=== PATIENT | male | born 1965 | race Caucasian/White ===

== ENCOUNTER → 2018-02-18 09:08 | Outpatient (CLI) | payer OTHER, SELFPAY ==
--- NOTE | 2018-02-18 09:17 | ECHOD_ITS ---
Reason For Study: CAD/ASHD Procedure This was a 2D Doppler, Color Flow transthoracic echocardiogram. Exam performed in department. Left Ventricle Normal size and thickness. The estimated ejection fraction is 65 %. No evidence for diastolic dysfunction. No regional wall motion abnormalities noted. Right Ventricle Normal size and thickness. Normal systolic function. Atria Normal left atrium. Normal right atrium. Normal atrial septum. Mitral Valve The mitral valve is structurally normal. No prolapse or stenosis seen. Trivial mitral valve insufficiency. Tricuspid Valve Normal tricuspid valve. Mild (1+) tricuspid valve insufficiency. Right ventricular systolic pressure estimated to be 31 mmHg. Aortic Valve Normal aortic valve. Trisinus/trileaflet aortic valve. Pulmonic Valve Normal pulmonic valve. Great Vessels Normal aortic root. Normal arch. Normal inferior vena cava. Inferior vena cava collapse with sniff. Pericardium/Pleural No pericardial effusion. MMode/2D Measurements & Calculations LVIDd: 5.2 cm IVSd: 1.1 cm Ao root diam: 3.2 cm LVIDs: 3.8 cm LVPWd: 1.0 cm LA dimension: 4.2 cm RVDd: 3.5 cm FS: 25.6 % LAV(MOD-bp): 70.2 ml LA A4 area: 18.4 cm2 RA A4 area: 18.0 cm2 LAV(MOD-bp) Indexed: 27.9 ml/m2 LAV(MOD-sp2): 83.9 ml LAV(MOD-sp4): 51.7 ml Doppler Measurements & Calculations MV E max saturnino: 83.5 cm/sec Lat Peak E' Saturnino: 11.5 cm/sec Med Peak E' Saturnino: 9.7 cm/sec MV A max saturnino: 53.8 cm/sec E/E' lat: 7.3 E/E' med: 8.6 MV E/A: 1.6 Ao V2 max: 119.3 cm/sec LV V1 max: 116.3 cm/sec PA V2 max: 99.4 cm/sec Ao max P.7 mmHg LV V1 max P.4 mmHg TR max saturnino: 244.1 cm/sec TR max P.9 mmHg Interpretation Summary The estimated ejection fraction is 65 %. No evidence for diastolic dysfunction. Trivial mitral valve insufficiency. Mild (1+) tricuspid valve insufficiency. Right ventricular systolic pressure estimated to be 31 mmHg. There is no comparison study available. Ordering Physician: Nelson Gutierrez Referring Physician: OTD Performed By: Trice Balderas RDCS, RVT
== END ==
PROVIDERS: Visit Provider Internal Medicine Cardiovascular Disease
DX: I25.10 Atherosclerotic heart disease of native coronary artery without angina pectoris (principal); I25.2 Old myocardial infarction; I10 Essential (primary) hypertension; E78.5 Hyperlipidemia, unspecified; Z95.5 Presence of coronary angioplasty implant and graft
CPT/HCPCS: 93306

== ENCOUNTER → 2019-07-21 09:59 | Outpatient (CLI) | payer OTHER, SELFPAY ==
[2019-06-29 13:07] VITALS: BMI 35.1
--- NOTE | 2019-07-21 10:01 | ECHOD_ITS ---
Reason For Study: PHTN Procedure This was a 2D Doppler, Color Flow transthoracic echocardiogram. Exam performed in department. Left Ventricle Normal size and thickness. The estimated ejection fraction is 65 %. Normal diastology for age. No regional wall motion abnormalities noted. Right Ventricle Normal size and thickness. A moderator band is seen in the right ventricle. Normal systolic function. Atria Normal left atrium. Normal right atrium. Normal atrial septum. Mitral Valve The mitral valve is structurally normal. No prolapse or stenosis seen. Tricuspid Valve Normal tricuspid valve. Trivial tricuspid valve insufficiency. Right ventricular systolic pressure estimated to be 31 mmHg. Aortic Valve Trisinus/trileaflet aortic valve. Normal aortic valve. Pulmonic Valve Normal pulmonic valve. Trivial pulmonic valve insufficiency. Great Vessels Normal aortic root. Normal arch. Normal inferior vena cava. Inferior vena cava collapse with sniff. Pericardium/Pleural No pericardial effusion. MMode/2D Measurements & Calculations LVIDd: 4.7 cm IVSd: 1.2 cm Ao root diam: 3.4 cm LVIDs: 3.1 cm LVPWd: 1.2 cm RVDd: 3.1 cm FS: 34.4 % LAV(MOD-bp): 68.2 ml LA A4 area: 18.4 cm2 LA dimension(2D): 4.3 cm LAV(MOD-bp) Indexed: 27.1 ml/m2 LAV(MOD-sp2): 70.2 ml LAV(MOD-sp4): 52.7 ml RA A4 area: 18.3 cm2 Time Measurements MV dec time: 0.22 sec Doppler Measurements & Calculations MV E max saturnino: 70.0 cm/sec Lat Peak E' Saturnino: 13.9 cm/sec Med Peak E' Saturnino: 8.9 cm/sec MV A max saturnino: 51.3 cm/sec E/E' lat: 5.0 E/E' med: 7.8 MV E/A: 1.4 Ao V2 max: 94.7 cm/sec LV V1 max: 83.6 cm/sec PA V2 max: 79.2 cm/sec Ao max P.6 mmHg LV V1 max P.8 mmHg TR max saturnino: 254.1 cm/sec TR max P.8 mmHg Interpretation Summary The estimated ejection fraction is 65 %. Normal diastology for age. Trivial tricuspid valve insufficiency. Right ventricular systolic pressure estimated to be 31 mmHg. Compared to echo report dated 02/18/2018, no appreciable changes noted. Ordering Physician: Nelson Gutierrez Referring Physician: OTD Performed By: Trice Balderas RDCS, MARTY
== END ==
PROVIDERS: Referring Provider Internal Medicine Cardiovascular Disease; Visit Provider Internal Medicine Cardiovascular Disease
DX: I27.20 Pulmonary hypertension, unspecified (principal); I25.10 Atherosclerotic heart disease of native coronary artery without angina pectoris; I25.2 Old myocardial infarction; I10 Essential (primary) hypertension; E78.5 Hyperlipidemia, unspecified; Z95.5 Presence of coronary angioplasty implant and graft
CPT/HCPCS: 93306

== ENCOUNTER → 2019-07-27 10:22 | Outpatient (CLI) | payer OTHER, SELFPAY ==
[2019-06-29 13:07] VITALS: BMI 35.1
--- NOTE | 2019-07-27 10:22 | STEWCON_ITS ---
Reason For Study: CAD/ASHD Stress Results Protocol: Stress Echocardiogram Maximum Predicted HR: 168 bpm Target HR: 143 bpm % Maximum Predicted HR: 99 % DurationHeart Rate Stage (mm:ss) (bpm) BP Comment BASELINE 61 134/94DILUTED DEFINITY 4 CC USED TREV PROTOCOL- STAGE 1 3:00 99 148/84NO SX TREV PROTOCOL- STAGE 2 3:00 111 150/86RARE PVCS, NO SX TREV PROTOCOL- STAGE 3 3:00 134 154/84RARE PVCS, NO SX TREV PROTOCOL- STAGE 4 3:00 166 158/90RARE PVCS, NO SX RECOVERY 90 124/84 Stress Duration: 12:00 mm:ss Maximum Stress HR: 166 bpm Baseline Echocardiogram Findings The estimated ejection fraction is 65 %. Stress Echo Wall motion Data Resting WM Intermediate WM Stress WM Resting Wall Motion Wall Motion Stress No regional wall motion No regional wall motion abnormalities noted. abnormalities noted. EKG Data The baseline ECG displays normal sinus rhythm. The patient exercised according to the regular Trev protocol for a total duration of 12:02. The maximum heart rate attained was 166 beats per minute. This was 98% of maximum predicted heart rate. The patient exercised into stage 5 of the Trev protocol. During stress, there were no ST or T wave changes noted to suggest ischemia. No clinical angina was noted. Interpretation Summary The estimated ejection fraction is 65 %. Normal, adequate, treadmill echocardiogram. Negative for ischemia by EKG and echocardiographic criteria. No anginal symptoms noted. Rare PVC noted. Average exercise capacity for age. Appropriate blood pressure response to exercise. Final LVEF is 75%. Test terminated due to the attainment target heart rate. Decreased sensitivity due to poor echo windows requiring Definity agent. Patient tolerated procedure well. No complications. The study was technically difficult. A transesophageal echocardiogram is recommended. Ordering Physician: Nelson Gutierrez Referring Physician: Nelson Gutierrez Performed By: Trice Balderas, RDCS, RVT
== END ==
PROVIDERS: Referring Provider Internal Medicine Cardiovascular Disease; Visit Provider Internal Medicine Cardiovascular Disease
DX: I25.10 Atherosclerotic heart disease of native coronary artery without angina pectoris (principal); I10 Essential (primary) hypertension; E78.5 Hyperlipidemia, unspecified; Z95.5 Presence of coronary angioplasty implant and graft
CPT/HCPCS: 93017; 93350; Q9957; A4216; C8928